=== PATIENT | male | born 1950 | race Caucasian/White ===

== ENCOUNTER 2019-11-23 10:43 | Emergency (ER) | payer MEDICARE, OTHER ==
[~2019-11-23] VITALS: Ht 180.3 cm; Wt 118.2 kg
[2019-11-23 10:55] VITALS: TEMP 97.6
[2019-11-23 11:41] LABS: BASO % 0.5 % (0.0-2.0); EOS # 0.1 (0.0-0.7); EOS % 1.5 % (0-4.0); GRAN # 4.2 (1.4-6.5); GRAN % 72.6 % (42.2-75.2); HEMATOCRIT 45.6 % (42.0-52.0); HEMOGLOBIN 14.5 g/dl (13.5-18.0); LYMPH # 0.8 (1.2-3.4); LYMPH % 14.1 % (20.0-51.0); MEAN CELL VOLUME 98 fl (80.0-100.0); MEAN CORPUSCULAR HEMOGLOBIN 31 pg (27.0-31.0); MEAN CORPUSCULAR HGB CONC 32 g/dl (33.0-37.0); MEAN PLATELET VOLUME 11.8 fl (7.4-10.4); MONO # 0.6 (0.1-0.6); MONO % 10.8 % (1.7-9.3); PLATELET COUNT 128 K/mm3 (130-400); RED BLOOD COUNT 4.64 M/mm3 (4.20-5.60); REDCELL DISTRIBUTION WIDTH-CV 14.3 % (11.5-14.5)
[2019-11-23 11:51] LABS: ALBUMIN 4.6 gm/dL (3.5-5.0); BILIRUBIN,TOTAL 1.8 mg/dL (0.0-1.0); CALCIUM 9.2 mg/dL (8.4-10.2); CREATININE, serum 0.87 (0.66-1.25); POTASSIUM 3.6 mmol/L (3.4-5.0); TOTAL PROTEIN 8.2 gm/dL (6.4-8.2)
[2019-11-23 11:57] LABS: INR 1.8 (0.8-3.0); PROTHROMBIN TIME 19.7 SECONDS (9.7-12.8)
[2019-11-23 11:59] LABS: PARTIAL THROMBOPLASTIN TIME 41.6 SECONDS (26.0-37.0)
[2019-11-23] MEDS ORDERED: CEPHALEXIN500 M1 PO (12:57)
[2019-11-23 13:19] VITALS: BP 138/97; PULSE 112
== END 2019-11-23 13:21 | disposition home or self-care (01) ==
LOC: COL.ER 10:43
PROVIDERS: Emergency Medicine
DX: R04.0 Epistaxis (principal); I48.91 Unspecified atrial fibrillation; Z79.01 Long term (current) use of anticoagulants; Z88.6 Allergy status to analgesic agent

== ENCOUNTER 2020-05-21 12:02 | Emergency (ER) | payer MEDICARE, OTHER ==
[~2020-05-21] VITALS: Ht 180.3 cm; Wt 118.2 kg
[~2020-05-21 12:02] MED LIST: CEPHALEXIN500 M1 PO
[2020-05-21 12:07] VITALS: TEMP 98.1
[2020-05-21] MEDS ORDERED: PRIL40 PO (14:20)
[2020-05-21] MEDS ORDERED: ZOCOR 20MG20 MG PO (14:21)
[2020-05-21] MEDS ORDERED: ZYLOPRIM 300MG300 MG PO (14:21)
[2020-05-21] MEDS ORDERED: ELIQUIS 5MG PO (14:21)
[2020-05-21] MEDS ORDERED: TOPROL XL100 MG PO (14:22)
[2020-05-21] MEDS ORDERED: COZAAR 25MG25 MG/TAB PO (14:22)
[2020-05-21] MEDS ORDERED: LASIX 40MG TABL40 MG PO (14:22)
[2020-05-21 14:49] LABS: BASO % 0.5 % (0.0-2.0); EOS # 0.1 (0.0-0.7); EOS % 1.6 % (0-4.0); GRAN # 5.8 (1.4-6.5); GRAN % 76.1 % (42.2-75.2); HEMATOCRIT 44.9 % (42.0-52.0); HEMOGLOBIN 14.1 g/dl (13.5-18.0); LYMPH # 0.9 (1.2-3.4); LYMPH % 11.7 % (20.0-51.0); MEAN CELL VOLUME 98 fl (80.0-100.0); MEAN CORPUSCULAR HEMOGLOBIN 31 pg (27.0-31.0); MEAN CORPUSCULAR HGB CONC 31 g/dl (33.0-37.0); MEAN PLATELET VOLUME 11.2 fl (7.4-10.4); MONO # 0.7 (0.1-0.6); MONO % 9.8 % (1.7-9.3); PLATELET COUNT 136 K/mm3 (130-400); RED BLOOD COUNT 4.59 M/mm3 (4.20-5.60); REDCELL DISTRIBUTION WIDTH-CV 14.4 % (11.5-14.5)
[2020-05-21 14:56] LABS: INR 1.4 (0.8-3.0); PROTHROMBIN TIME 15.7 SECONDS (9.7-12.8)
[2020-05-21 15:06] LABS: ALBUMIN 4.1 gm/dL (3.5-5.0); BILIRUBIN,TOTAL 1.2 mg/dL (0.0-1.0); CALCIUM 9.2 mg/dL (8.4-10.2); CREATININE, serum 0.87 (0.66-1.25)
[2020-05-21 15:30] VITALS: BP 124/97; PULSE 110
== END 2020-05-21 15:30 | disposition home or self-care (01) ==
LOC: COL.ER 12:02
PROVIDERS: Family Medicine
DX: R04.0 Epistaxis (principal); I48.91 Unspecified atrial fibrillation; I10 Essential (primary) hypertension; Z88.6 Allergy status to analgesic agent; Z79.01 Long term (current) use of anticoagulants